=== PATIENT | male | born 1945 | race Caucasian/White ===

== ENCOUNTER → 2021-03-20 | Outpatient (CLI) | payer OTHER ==
[2021-03-20] VITALS (10 sets, daily range): BP systolic 96–153; BP diastolic 52–83
[~2021-03-20] VITALS: Ht 185.4 cm; Wt 102.5 kg
[~2021-03-20] MED LIST: AMBIEN 5 MG TABL5 M1 PO; ASPIRIN EC81 M1 PO; CARVEDILOL3.125 MG PO; CLOPIDOGREL75 MG PO; GAVILAX17 GM PO; MIRALAX255 GM PO; NITROGLYCERIN0.4 MG SUBLING; PANTOPRAZOLE SO40 M1 PO; SIMVASTATIN40 MG PO
[2021-03-20 11:46] LABS: HEMOGLOBIN 16.6 gm/dL (14.0-18.0); MCH 30.6 pg (26.0-34.0); MCHC 33.1 g/dL (28.0-37.0); MCV 92.3 fL (80.0-100.0); RBC 5.41 mil/uL (4.50-6.00); RDW 14.6 % (10.5-14.5); WBC 8.5 thou/uL (4.0-11.0)
[2021-03-20 12:01] LABS: INR 0.95; PROTIME 10.4 Seconds (10.5-12.1)
--- NOTE | 2021-03-20 15:59 | NUR ---
INCISION SITE DSG TO R FLANK C/D/I. PT DENIES QUESTIONS OR CONCERNS REGARDING POST HOSPTAIL/ POST PROCEDURE CARES. VSS. NO DISTRESS NOTED.
--- NOTE | 2021-03-28 00:06 | PATH ---
[facility] [address] [place] [address] PATHOLOGY RPT PROCEDURE Name: SURYA LEDEZMA Room #: REG ALEKS Perez.#: [id number] Admission: 03/20/21 Date of : 45 Discharge: Report #: [id number] Path Case #: [id number] [facility] Accession Number: [id number] . 01 Material submitted: . lymph node - RIGHT RETROPERITONEAL LYMPHADENOPATHY. Modifiers: right, RETROPERITONEAL . 01 Clinician provided ICD-10: R59.9 . 01 Clinical history: . RT PELVIC MASS LYMPHADENOPATHY LAB/CAT/BIOPSY ABD/ RETROPERITONEAL LYMPHADENOPATHY HEMATOLYMPHOID NEOPLASIA ASSESSMENT ([facility]) . 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 (SEE COMMENT) . (REGGIE:fanny; 03/26/2021) QTP 03/27/2021 0706 Local . 02 Comment: Sections show needle core biopsy fragments of scant lymphoid tissue. The lymph node has an atypical lymphoid infiltrate composed of predominantly small round mature-appearing lymphocytes with condensed chromatin and scant cytoplasm. Neither a high mitotic rate nor abundant single cell necrosis is seen. Geographic necrosis is not identified. There is no lymph node architecture. . To confirm the flow cytometry findings and to identify cells in a tissue architectural context, properly-controlled immunohistochemical stains are performed: . Block A1: PAX-5 - Diffusely reactive; CD3 - Highlights admixed T-cells; CD5 - Diffusely reactive; CD10 - Non-reactive; BCL-6 - Non-reactive; BCL-2 - Diffusely reactive CD23 - Diffusely reactive; Ki-67 - Proliferative index of approximately 5-10%. . Block A2: [address] [address] PATHOLOGY RPT PROCEDURE Name: SURYA LEDEZMA Room #: [facility] [id number] Admission: 03/20/21 Date of : 45 Discharge: Report #: [id number] Path Case #: [id number] CD21 - Non-reactive; Cyclin D1 - Lacks diffuse nuclear reactivity. . Flow cytometric immunophenotypic analysis was performed at [facility]. 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 There are 18% remaining lymphocytes. Of the remaining lymphocytes, there are 1% polyclonal B-cells. T-cells have a CD4/CD8 ratio of 4.7 and no aberrant T-cell antigen expression. Please see separate flow cytometry report from [facility] ([id number]). . Overall, the diagnosis is involvement of the lymph node by chronic lymphocytic leukemia / small lymphocytic lymphoma. Clinical and radiographic correlation is recommended. . The case is co-reviewed with Dr. Doyle Orta and Dr. Jelena Marin who agree on 03/26/21. The case will be discussed with Dr. Garcia and/or his office on 03/31/21. . (CLW:fanny; 03/26/2021) . 02 Electronically signed: . Saskia Duvall MD, Pathologist NPI- [id number] . 01 Gross description: . The specimen is received in 2 parts. The first container is received in formalin, labeled "Surya Ledezma, RT retroperitoneal lymphadenopathy". It consists of multiple vela-brown, irregular soft tissue fragments ranging from 0.1-0.6 cm in greatest dimension. The specimen is entirely submitted between sponges in A1-A3. The second container is received in RPMI, labeled "Surya Ledezma, RT retroperitoneal lymphadenopathy". It consists of 3 white core tissue fragments ranging from 0.5-0.7 cm long and averaging 0.1 cm in diameter. The specimen is entirely submitted in RPMI for flow cytometry. (MRF; 03/20/2021) MFE/MFE 03/20/2021 1913 Local . 02 Pathologist provided ICD-10: C91.10 . 02 CPT . 727359, [id number], [id number], 122248 Specimen Comment: A courtesy copy of this report has been sent to [phone] [address] PATHOLOGY RPT PROCEDURE Name: SURYA LEDEZMA Room #: REG ALEKS Perez.#: [id number] Admission: 03/20/21 Date of : 45 Discharge: Report #: [id number] Path Case #: [id number] Specimen Comment: Report sent to DR. GARCIA Performed at: 01 [facility] [place] [address] [facility] [address], [place], [place] [id number] MD Jatin Severino MD Phone: [phone] Performed at: 02 [facility] [place] [address] [place] [id number] MD Saskia Duvall MD Phone: [phone]
== END | disposition home or self-care (01) ==
LOC: CAT 09:38
PROVIDERS: Radiology Diagnostic Radiology; ATTEND Neuromusculoskeletal Medicine & OMM
DX: C91.10 Chronic lymphocytic leukemia of B-cell type not having achieved remission (principal); R59.0 Localized enlarged lymph nodes; I13.0 Hypertensive heart and chronic kidney disease with heart failure and stage 1 through stage 4 chronic kidney disease, or unspecified chronic kidney disease; I50.9 Heart failure, unspecified; N18.30 Chronic kidney disease, stage 3 unspecified; K21.9 Gastro-esophageal reflux disease without esophagitis; I25.2 Old myocardial infarction; N40.0 Benign prostatic hyperplasia without lower urinary tract symptoms; I25.10 Atherosclerotic heart disease of native coronary artery without angina pectoris; Z98.890 Other specified postprocedural states; Z79.899 Other long term (current) drug therapy; Z88.2 Allergy status to sulfonamides; Z79.82 Long term (current) use of aspirin